=== PATIENT | female | born 1940 | race Caucasian/White ===

== ENCOUNTER 2017-08-04 05:58 | Inpatient (IN) | payer MEDICARE ==
[~2017-08-04] VITALS: Ht 152.4 cm; Wt 75.8 kg
[~2017-08-04 05:58] MED LIST: ATENOLOL50 MG PO; BUSPIRONE HCL5 MG PO; CHOLESTYRAMINE L4 GM; CIPROFLOXACIN500 MG PO; FERROUS SULFAT325 MG PO; FEXOFENADINE H180 MG PO; GLIPIZIDE5 MG PO; JANUVIA100 MG PO; KEFLEX500 MG PO; LACTULOSE20 GM/30 M PO; LANSOPRAZOLE30 M1 PO; LEVAQUIN250 MG PO; LEVOTHYROXINE50 MCG PO; LISINOPRIL2.5 MG PO; LOSARTAN POTAS100 MG PO; LOSARTAN POTASS25 MG PO; METFORMIN HCL500 M2 PO; METFORMIN HCL500 MG PO; OMEPRAZOLE40 MG PO; ONDANSETRON HCL8 MG PO; PREVACID15 MG PO; URSODIOL300 MG PO; XIFAXAN550 MG; XIFAXAN550 MG PO; Z GLUCOTROL PO; Z.0.ALDACTONE50 MG PO; Z.0.AMLODIPINE BESYL PO; Z.0.ATENOLOL50 MG PO; Z.0.CIPRO500 MG PO; Z.0.DIOVAN160 MG PO; Z.0.LANSOPRAZOLE30 M PO; Z.0.LASIX20 MG PO; Z.0.LEVOTHYROXINE25 PO; Z.0.NEXIUM40 MG PO; Z.0.OMEPRAZOLE40 MG PO; Z.0.PLAVIX75 MG PO; Z.2.METFORMIN HCL500 PO
[2017-08-04 06:39] LABS: BASOPHILS # (AUTO) 0.1 (0.0-0.1); BASOPHILS % 1.2 % (0.0-1.0); EOSINOPHILS # (AUTO) 0.2 (0.0-0.4); EOSINOPHILS % 3.7 % (0.0-6.0); HEMATOCRIT 33.6 % (34.2-44.1); HEMOGLOBIN 10.9 g/dL (12.0-16.0); LYMPHOCYTES # (AUTO) 1.1 (1.0-3.2); LYMPHOCYTES % 20.1 % (18.0-39.1); MEAN CORPUSCULAR HEMOGLOBIN 31.4 pg (28-32); MEAN CORPUSCULAR HGB CONC 32.4 g/dL (31-35); MEAN CORPUSCULAR VOLUME 96.8 fL (81-99); MONOCYTES # (AUTO) 0.6 (0.2-0.8); MONOCYTES % 10.9 % (4.4-11.3); NEUTROPHILS # (AUTO) 3.6 (2.1-6.9); NEUTROPHILS % 63.4 % (38.7-80.0); PLATELET COUNT 125 x10e3/uL (140-360); RED BLOOD COUNT 3.47 x10e6/uL (3.6-5.1); RED CELL DISTRIBUTION WIDTH 19.6 % (11.7-14.4)
[2017-08-04 07:00] LABS: ALBUMIN/GLOBULIN RATIO 0.4 (0.8-2.0); CALCIUM 8.3 mg/dL (8.4-10.2); CREATININE, SERUM 0.95 mg/dL (0.57-1.11)
[2017-08-04 07:01] LABS: CREATINE KINASE MB 1.5 ng/mL (0-5.0)
[2017-08-04] MEDS ORDERED: LIDOCAINE 1% 5ML-MPF INJ ONE (07:15)
[2017-08-04 07:22] LABS: INR 1.84; PARTIAL THROMBOPLASTIN TIME 39.4 seconds (23.8-35.5)
--- NOTE | 2017-08-04 07:43 | Diagnostic Imaging Report ---
Exams: Head and cervical spine CTs without IV contrast History: Multiple prior head CTs which date to 04/06/2014, most recent head CT of 04/15/2016. Comparison studies: None Technique: Axial images were obtained from the brain and cervical spine. Coronal and sagittal images reconstructed from the axial data. Intravenous contrast: None Findings: Head CT: Scalp: Possible dressing in place over the left frontal convexity no large hematoma. Bones: No fractures, blastic or lytic lesions. Extra-axial spaces: No masses. No fluid collections. Brain sulci: Appropriate for age. Ventricles: Mildly prominent. No hydrocephalus. Parenchyma: No mass, acute hemorrhage or acute cortical vascular insults. Confluent hypodensity in the supratentorial white matter is nonspecific but most compatible with chronic small vessel ischemic changes. Sellar/suprasellar region: No abnormalities. Craniocervical junction: The foramen magnum is patent. No Chiari one malformation. Included paranasal sinuses: Nonspecific scattered mucosal thickening in the right ethmoids, left frontal ethmoidal recess and in the left maxillary sinus. Cervical spine CT: Fractures: None. Soft tissues: No gross abnormalities. Atlantoaxial articulation: Intact. Alignment: Normal lordosis. No scoliosis. Cervicomedullary junction: No abnormalities. The foramen magnum is patent. Vertebrae: No infection or neoplasm. The C3 and C4 vertebrae are congenitally fused. Degenerative changes: Mildly degenerated cervical disks. Anterior disc osteophyte from C4 to C7 indent the prevertebral soft tissues. Disc osteophyte complexes at C4-C5, C5-C6 and C6-C7 indent the thecal sac but do not result in significant canal stenosis. Mild scattered uncovertebral facet arthrosis without significant foraminal stenosis. Incidental findings: Atherosclerotic calcifications in the carotid siphons. Bilateral lens replacements related to previous cataract surgery. Partially imaged fluid-filled, distended thoracic esophagus. Findings are nonspecific but could be related to gastroesophageal reflux in the context of a hiatal hernia as described on the remote abdomen CT of 03/29/2014. Cannot further evaluate on this exam. Conventional esophagram could further evaluate, as warranted. IMPRESSION: Head CT: 1. No acute intracranial abnormalities. 2. No fractures. 3. Moderate chronic microvascular ischemic changes and mild generalized volume loss are unchanged. Cervical spine CT: 1. No cervical spine fracture or subluxation. 2. Congenital C3-C4 vertebral fusion. 3. Mild degenerative changes as described. 4. Nonspecific esophageal distention, as described. Cannot adequately evaluate ligament, spinal cord and or vascular abnormalities on the basis of this examination. Signed by: Dr. Keyon Crowley M.D. on 08/04/2017 7:35 AM
[2017-08-04] MEDS ORDERED: LIDOCAINE HCL 1% LOCAL INJ 20 ML VIAL ONE (07:44)
--- NOTE | 2017-08-04 07:55 | Diagnostic Imaging Report ---
PROCEDURE: A single AP view of the chest. COMPARISON: Portable chest 09/25/2016. INDICATIONS: S/P FALL, SYNCOPE FINDINGS: Lines/tubes: None. Lungs: Bibasilar atelectasis. No focal consolidation. No parenchymal mass. Pleura: There is no pleural effusion or pneumothorax. Heart and mediastinum: The heart and the mediastinum are unremarkable. Small hiatal hernia. Bones: No acute bony abnormality. Degenerative changes of the thoracic spine. IMPRESSION: No acute radiographic abnormality. Dictated by: Tom Sharp M.D. on 08/04/2017 at 7:56 Electronically approved by: Tom Sharp M.D. on 08/04/2017 at 7:56
[2017-08-04] MEDS ORDERED: LIDOCAINE HCL 1% LOCAL INJ 20 ML VIAL INJ ONE (08:00)
[2017-08-04 08:55] LABS: BILIRUBIN,URINE 1+ (NEGATIVE); CLARITY,URINE SL CLOUDY (CLEAR); COLOR,URINE YELLOW (YELLOW); KETONES,URINE NEGATIVE (NEGATIVE); LEUKOCYTE ESTERASE ,URINE NEGATIVE (NEGATIVE); NITRITE,URINE NEGATIVE (NEGATIVE); PROTEIN,URINE DIPSTICK NEGATIVE (NEGATIVE); URINE UROBILINOGEN 0.2 mg/dL (0.2 - 1)
[2017-08-04 09:21] LABS: EPITHELIAL CELLS,URINE RARE /LPF
[2017-08-04 09:22] LABS: YEAST,URINE RARE
--- OUTSIDE RECORDS SUMMARY | 2017-08-04 09:43 | XMS REPORT ---
Author Author [facility] Address Unknown Phone Unavailable Care Team Providers Care Laboratory Aide Name Role Phone MINNIE KRAMER Unavailable Unavailable Problems This patient has no known problems. Allergies, Adverse Reactions, Alerts This patient has no known allergies or adverse reactions. Medications This patient has no known medications. Results Test Description Test Time Test Comments Text Results Atomic Results Result Comments CT BRAIN WO [place] [address] Patient Name: TARAH GIBBONS MR #: [id number] : 1940 Age/Sex: 77/F Req # : [id number] Adm Physician: Ordered by: BIANKA JIMENEZ MD Report # : [id number] Location: ER Room/Bed: Procedure: [id number] CT/CT BRAIN WO Exam Date: 08/04/17 Exam Time: 0643 REPORT STATUS: Signed Exams: Head and cervical spine CTs without IV contrast History: Multiple prior head CTs which date to 04/06/2014, most recent head CT of 04/15/2016. Comparison studies: None Technique: Axial images were obtained from the brain and cervical spine. Coronal and sagittal images reconstructed from the axial data. Intravenous contrast: None Findings: Head CT: Scalp: Possible dressing in place over the left frontal convexity no large hematoma. Bones: No fractures, blastic or lytic lesions. Extra-axial spaces: No masses. No fluid collections. Brain sulci: Appropriate for age. Ventricles: Mildly prominent. No hydrocephalus. Parenchyma: No mass, acute hemorrhage or acute cortical vascular insults. Confluent hypodensity in the supratentorial white matter is nonspecific but most compatible with chronic small vessel ischemic changes. Sellar/suprasellar region: No abnormalities. Craniocervical junction: The foramen magnum is patent. No Chiari one malformation. Included paranasal sinuses: Nonspecific scattered mucosal thickening in the right ethmoids, left frontal ethmoidal recess and in the left maxillary sinus. Cervical spine CT: Fractures: None. Soft tissues: No gross abnormalities. Atlantoaxial articulation: Intact. Alignment: Normal lordosis. No scoliosis. Cervicomedullary junction: No abnormalities. The foramen magnum is patent. Vertebrae: No infection or neoplasm. The C3 and C4 vertebrae are congenitally fused. Degenerative changes: Mildly degenerated cervical disks. Anterior disc osteophyte from C4 to C7 indent the prevertebral soft tissues. Disc osteophyte complexes at C4-C5, C5-C6 and C6- C7 indent the thecal sac but do not result in significant canal stenosis. Mild scattered uncovertebral facet arthrosis without significant foraminal stenosis. Incidental findings: Atherosclerotic calcifications in the carotid siphons. Bilateral lens replacements related to previous cataract surgery. Partially imaged fluid-filled, distended thoracic esophagus. Findings are nonspecific but could be related to gastroesophageal reflux in the context of a hiatal hernia as described on the remote abdomen CT of 2013. Cannot further evaluate on this exam. Conventional esophagram could further evaluate, as warranted. IMPRESSION: Head CT: 1. No acute intracranial abnormalities. 2. No fractures. 3. Moderate chronic microvascular ischemic changes and mild generalized volume loss are unchanged. Cervical spine CT: 1. No cervical spine fracture or subluxation. 2. Congenital C3-C4 vertebral fusion. 3. Mild degenerative changes as described. 4. Nonspecific esophageal distention, as described. Cannot adequately evaluate ligament, spinal cord and or vascular abnormalities on the basis of this examination. Signed by: Dr. Any Crowley M.D. on 08/04/2017 7:35 AM Dictated By: ANY CROWLEY MD 4 Transcribed By: CAMELIA on 08/04/17734 COPY TO: BIANKA JIMENEZ MD CT CERVICAL SPINE WO [facility] [address] [address] Patient Name: TARAH GIBBONS MR #: [id number] : 1940 Age/Sex: 77/F Req #: [id number] Adm Physician: Ordered by: BIANKA JIMENEZ MD Report #: [id number] Location: ER Room/Bed: Procedure: [id number] CT/CT CERVICAL SPINE WO Exam Date: 08/04/17 Exam Time: 0643 REPORT STATUS: Signed Exams: Head and cervical spine CTs without IV contrast History: Multiple prior head CTs which date to 04/06/2014, most recent head CT of 04/15/2016. Comparison studies: None Technique: Axial images were obtained from the brain and cervical spine. Coronal and sagittal images reconstructed from the axial data. Intravenous contrast: None Findings: Head CT: Scalp: Possible dressing in place over the left frontal convexity no large hematoma. Bones: No fractures, blastic or lytic lesions. Extra-axial spaces: No masses. No fluid collections. Brain sulci: Appropriate for age. Ventricles: Mildly prominent. No hydrocephalus. Parenchyma: No mass, acute hemorrhage or acute cortical vascular insults. Confluent hypodensity in the supratentorial white matter is nonspecific but most compatible with chronic small vessel ischemic changes. Sellar/suprasellar region: No abnormalities. Craniocervical junction: The foramen magnum is patent. No Chiari one malformation. Included paranasal sinuses: Nonspecific scattered mucosal thickening in the right ethmoids, left frontal ethmoidal recess and in the left maxillary sinus. Cervical spine CT: Fractures: None. Soft tissues: No gross abnormalities. Atlantoaxial articulation: Intact. Alignment: Normal lordosis. No scoliosis. Cervicomedullary junction: No abnormalities. The foramen magnum is patent. Vertebrae: No infection or neoplasm. The C3 and C4 vertebrae are congenitally fused. Degenerative changes: Mildly degenerated cervical disks. Anterior disc osteophyte from C4 to C7 indent the prevertebral soft tissues. Disc osteophyte complexes at C4-C5 , C5-C6 and C6-C7 indent the thecal sac but do not result in significant canal stenosis. Mild scattered uncovertebral facet arthrosis without significant foraminal stenosis. Incidental findings: Atherosclerotic calcifications in the carotid siphons. Bilateral lens replacements related to previous cataract surgery. Partially imaged fluid-filled, distended thoracic esophagus. Findings are nonspecific but could be related to gastroesophageal reflux in the context of a hiatal hernia as described on the remote abdomen CT of 03/29/2014. Cannot further evaluate on this exam. Conventional esophagram could further evaluate, as warranted. IMPRESSION : Head CT: 1. No acute intracranial abnormalities. 2. No fractures. 3. Moderate chronic microvascular ischemic changes and mild generalized volume loss are unchanged. Cervical spine CT: 1. No cervical spine fracture or subluxation. 2. Congenital C3-C4 vertebral fusion. 3. Mild degenerative changes as described. 4. Nonspecific esophageal distention, as described. Cannot adequately evaluate ligament, spinal cord and or vascular abnormalities on the basis of this examination. Signed by: Dr. Any Crowley M.D. on 08/04/2017 7:35 AM Dictated By: ANY CROWLEY MD 4 Transcribed By : CAMELIA on 08/04/17734 COPY TO: BIANKA JIMENEZ MD [facility] ([facility]) [place] [address] Patient Name: TARAH GIBBONS MR #: [id number] : 1940 Age/Sex: 77/F Req #: [id number] Adm Physician: Ordered by: BIANKA JIMENEZ MD Report #: [id number] Location: ER Room/Bed: ___ Procedure: [id number] DX/CHEST SINGLE (PORTABLE) Exam Date: 08/04/17 Exam Time: 0643 REPORT STATUS: Signed PROCEDURE : A single AP view of the chest. COMPARISON: Portable chest 09/25/2016. INDICATIONS: S/P FALL, SYNCOPE FINDINGS: Lines/tubes: None. Lungs: Bibasilar atelectasis. No focal consolidation. No parenchymal mass. Pleura: There is no pleural effusion or pneumothorax. Heart and mediastinum: The heart and the mediastinum are unremarkable. Small hiatal hernia. Bones: No acute bony abnormality. Degenerative changes of the thoracic spine. IMPRESSION: No acute radiographic abnormality. Dictated by: Pooja Gómez M.D. on 2017 at 7:56 Electronically approved by: Pooja Gómez M.D. on 08/04/2017 at 7:56 Dictated By: POOJA GÓMEZ MD 0756 Transcribed By: YENIFER on 08/04/17 0756 COPY TO: BIANKA JIMENEZ MD
[2017-08-04] MEDS: SODIUM CHLORIDE 0.9% 1000ML 1,000 ML IV SCH (10:40)
[2017-08-04] MEDS: ONDANSETRON HCL INJ 2 MG/ML VIAL IV PRN (20:25)
[2017-08-04] MEDS: MORPHINE SULFATE 2 MG/ML SYR IV PRN (20:30)
[2017-08-04 20:57] VITALS: BP 121/60
[2017-08-04 22:00] VITALS: BP 121/60
[2017-08-04 22:35] VITALS: BP 121/60
[2017-08-05] VITALS (7 sets, daily range): BP systolic 127–152; BP diastolic 60–65
[2017-08-05] MEDS: SODIUM CHLORIDE 0.9% 1000ML 1,000 ML IV SCH ×3 (05:02→23:23)
[2017-08-05 07:39] LABS: CREATINE KINASE MB 1.8 ng/mL (0-5.0)
--- NOTE | 2017-08-05 08:59 | History and Physical ---
PRIMARY CARE PHYSICIAN: None CHIEF COMPLAINT: Fall. HISTORY OF PRESENT ILLNESS: This is a 77-year-old woman with a history of cirrhosis and hepatic encephalopathy, who fell at home. Details of the fall are unclear. The patient unable to provide any history. I am unable to reach the by telephone, . The patient currently is comfortable. She had a gash/bruise over her left eyebrow. Otherwise, the patient denies any pain at this time. Denies any shortness of breath. PAST MEDICAL HISTORY: Liver cirrhosis, hepatic encephalopathy, hypertension, abdominal surgery, medication noncompliance with lactulose, hypertensive urgency, diabetes mellitus, chronic kidney disease, stage 3, esophageal varices, urinary tract infection, ileus. PAST SURGICAL HISTORY: Unknown. C3-C4 vertebral fusion. ALLERGIES: PER ELECTRONIC MEDICAL RECORD. FAMILY HISTORY/SOCIAL HISTORY: The patient lives with her . Family history of hypertension. No alcohol, illicits or cigarettes. MEDICATIONS: Per electronic medical records. REVIEW OF SYSTEMS: Unreliable. PHYSICAL EXAMINATION VITAL SIGNS: On admission, temperature 98.1, pulse 59, blood pressure 155/68, respiratory rate 18, and oxygen 86% on 3 L nasal cannula. Currently, the patient is 91% on 2 L nasal cannula. GENERAL: A tired-appearing woman resting in bed. HEENT: She has a bruise over the left eyebrow. CARDIOVASCULAR: Normal S1 and S2. LUNGS: She has reduced breath sounds throughout. ABDOMEN: Soft. She has a large abdomen. She has a midline scar. She has a right-sided large incisional hernia, which is nontender and somewhat reducible. EXTREMITIES: She has 1+ leg edema bilaterally. SKIN: Dry. PSYCHIATRIC: Flat affect. NEUROLOGIC: Awake but confused. LABS: Reviewed. MEDICATIONS: Reviewed. ASSESSMENT AND PLAN: This is a 77-year-old woman with: 1. Fall: Will get physical therapy consultation. Computerized tomography scan of the brain is negative for any acute findings. Computerized tomography scan of the cervical spine does not show any significant disease. It does show C3-C4 vertebral fusion. 2. Hepatic encephalopathy with hypoammoniemia: Ammonia level 186. Will use lactulose now. 3. Metabolic acidosis: Bicarb 18. Will assess. Will give bicarb to avoid excess fluid at this time in a patient with edema. 4. Peripheral edema and anasarca: She has ascites as well. She does have a history of chronic kidney disease. Will attempt to diurese the patient. 5. Chronic kidney disease, likely stage 2-3: Will monitor while being diuresed. 6. Coagulopathy: INR is 1.8. Monitor for occult bleeding. 7. Thrombocytopenia: Secondary to liver disease. 8. Prophylaxis: Will use sequential compression devices and Pepcid. 9. Disposition: Monitor closely. Physical therapy consultation. Attempted to reach at [phone], but unable to leave a message and later will try again. Job#: [id number] [place]INT[place]
[2017-08-05] MEDS: ATENOLOL 50 MG TAB PO SCH ×2 (09:00→17:46)
--- NOTE | 2017-08-05 09:01 | History and Physical ---
ADDENDUM The patient also has diabetes mellitus. Will hold glipizide and continue metformin. Liver disease. Will continue with rifaximin. Hypothyroidism. Will resume Synthroid and check TSH. Job#: [id number] RI
[2017-08-05 09:08] LABS: CHOL/HDL RATIO 2.8 (3.0-3.6)
[2017-08-05 09:28] LABS: THYROID STIMULATING HORMONE 3.297 uIU/mL (0.350-4.940)
[2017-08-05] MEDS: SITAGLIPTIN 100 MG TAB PO SCH (09:58)
[2017-08-05] MEDS: FUROSEMIDE INJ 10 MG/ML 2 ML VIAL IV SCH (09:58)
[2017-08-05] MEDS: URSODIOL 300 MG CAP PO SCH ×2 (09:59→17:46)
[2017-08-05] MEDS: METFORMIN HCL 500 MG TAB CR PO SCH ×2 (09:59→17:46)
[2017-08-05] MEDS: RIFAXIMIN 550 MG TABLET PO SCH ×2 (09:59→20:11)
[2017-08-05] MEDS: PANTOPRAZOLE SOD 40 MG TABEC PO SCH (09:59)
[2017-08-05] MEDS: LEVOTHYROXINE SODIUM 25 MCG TABLET PO SCH (09:59)
[2017-08-05] MEDS: LACTULOSE SYRUP 20 GM/30 ML UDC PO SCH (23:23)
[2017-08-06] VITALS (8 sets, daily range): BP systolic 115–170; BP diastolic 61–81
[2017-08-06] MEDS: LACTULOSE SYRUP 20 GM/30 ML UDC PO SCH ×3 (05:16→18:02)
[2017-08-06] MEDS: LEVOTHYROXINE SODIUM 25 MCG TABLET PO SCH (05:16)
[2017-08-06] MEDS ORDERED: DEXTROSE 50% SYRINGE 50 ML IV PRN (06:30)
[2017-08-06] MEDS: INSULIN REGULAR, HUMAN 100 UNIT/1 ML 3ML VIAL SQ SCH ×4 (07:30→21:00)
--- NOTE | 2017-08-06 08:04 | Progress Note ---
DATE: August 06, 2017 TIME: 7:44 a.m. OVERNIGHT: No events. REVIEW OF SYSTEMS: Unreliable. PHYSICAL EXAMINATION VITAL SIGNS: Reviewed. GENERAL: A tired-appearing woman resting in bed. HEENT: Atraumatic. CARDIOVASCULAR: Normal S1 and S2. LUNGS: Moderate breath sounds. ABDOMEN: Large. She has a midline scar. She has right-sided large incisional hernia mildly tender abdomen. EXTREMITIES: One plus leg edema. SKIN: Dry. PSYCHIATRIC: Flat affect. NEUROLOGICAL: Awake and confused. LABS: Reviewed. MEDICATIONS: Reviewed. ASSESSMENT: A 77-year-old woman with: 1. Fall. 2. Hepatic encephalopathy with hyperammonemia. 3. Metabolic acidosis. 4. Peripheral edema and anasarca. 5. 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 6. Coagulopathy. 7. Thrombocytopenia. PLAN 1. Continue Xifaxan and lactulose. 2. IR for paracentesis. 3. Physical therapy and SNF evaluation. 4. Monitor renal function. Follow up labs. 5. Hemoglobin A1c 5.1, LDL 63. 6. Continue Synthroid. 7. The patient remains on metformin. She does have a history of diabetes, but A1c is quite low. 8. Obtain labs this morning. SNF evaluation. Job#: [id number] [place]
[2017-08-06] MEDS: PANTOPRAZOLE SOD 40 MG TABEC PO SCH (08:50)
[2017-08-06] MEDS: ATENOLOL 50 MG TAB PO SCH ×2 (08:50→17:13)
[2017-08-06] MEDS: METFORMIN HCL 500 MG TAB CR PO SCH ×2 (08:50→17:13)
[2017-08-06] MEDS: URSODIOL 300 MG CAP PO SCH ×2 (08:50→17:13)
[2017-08-06] MEDS: FUROSEMIDE INJ 10 MG/ML 2 ML VIAL IV SCH (08:50)
[2017-08-06] MEDS: RIFAXIMIN 550 MG TABLET PO SCH ×2 (08:50→21:16)
[2017-08-06] MEDS: SITAGLIPTIN 100 MG TAB PO SCH (08:50)
[2017-08-06] MEDS ORDERED: METOPROLOL TARTRATE INJ 1 MG/ML VIAL IV ONE (10:30)
[2017-08-06] MEDS ORDERED: DIGOXIN INJ 0.25 MG/ML 2 ML AMP IV ONE ×2 (12:30→18:00)
[2017-08-06] MEDS ORDERED: ATENOLOL 50 MG TAB PO ONE (12:30)
[2017-08-06] MEDS ORDERED: METOPROLOL TARTRATE INJ 1 MG/ML VIAL IV PRN (14:30)
[2017-08-06] MEDS: SODIUM CHLORIDE 0.9% 1000ML 1,000 ML IV SCH (14:46)
--- NOTE | 2017-08-06 15:32 | Diagnostic Imaging Report ---
PROCEDURE:US ABDOMEN LIMITED COMPARISON:None. INDICATIONS: Possible Paracentesis TECHNIQUE: Transverse and longitudinal images of the abdomen were obtained of the right and left upper and lower quadrants and midline abdomen. FINDINGS: Small amount of ascites is noted. IMPRESSION: Small volume ascites, likely too small to be of therapeutic/symptomatic benefit. Dictated by: Kade Glez M.D. on 08/06/2017 at 15:32 Electronically approved by: Kade Glez M.D. on 08/06/2017 at 15:32
--- NOTE | 2017-08-06 16:50 | Consultation ---
DATE OF CONSULTATION: August 06, 2017 REASON FOR CONSULTATION: Atrial fibrillation with rapid ventricular response. CONSULTING PHYSICIAN: Dr. Tom Sen. HISTORY OF PRESENT ILLNESS: This is a 77-year-old female with a history of liver cirrhosis who presented status post fall. According to the patient, she was getting out of the bathroom. She lost her balance and she fell hitting her left eye on the floor and sustaining a laceration. She was brought into the emergency room for evaluation. She had a CT done that was negative. Today, she went into atrial fibrillation with rapid ventricular response and cardiology was consulted. She has a history of atrial fibrillation in the past and was not anticoagulated due to the history of liver cirrhosis. She was given digoxin and beta andie and the heart rate is controlled now. She denied any chest pain, any dizziness, any shortness of breath, any diaphoresis or any nausea. Troponin was negative and EKG showed atrial fibrillation, irregularly irregular. PAST MEDICAL HISTORY: Liver cirrhosis, diabetes, hypertension, hepatitis B, esophageal varices, chronic kidney disease, ileus, UTI, hepatic encephalopathy, hypothyroidism, peripheral edema. PAST SURGICAL HISTORY: C3-C4 vertebral fusion, cholecystectomy and colon surgery. FAMILY HISTORY: Positive for hypertension and breast cancer. SOCIAL HISTORY: No smoking, no drinking. She lives at home with her . MEDICATIONS: See medication list. ALLERGIES: CODEINE, PENICILLIN AND IODINE. REVIEW OF SYSTEMS: Negative except as mentioned above. PHYSICAL EXAMINATION VITAL SIGNS: Temperature 97, heart rate 100, blood pressure 116/81, respirations 18, oxygen saturation 97% on room air. GENERAL: She is awake, alert and oriented x3. HEENT: Mucous membranes moist. NECK: Supple. LUNGS: Bilateral with decreased breath sounds. CARDIOVASCULAR: Irregularly irregular. ABDOMEN: Soft, but distended. NEUROLOGIC: She is able to verbalize need and move all extremities. Bilateral lower extremities with 2+ to 3+ edema. LABORATORY DATA: Sodium 139, potassium 4.0, chloride 114, CO2 of 18, BUN 12, creatinine 0.95, glucose 133. White blood cells 5.68. Hemoglobin 10.9, hematocrit 33.6, platelets 125,000. PT 20.0, PTT 39.4, INR 1.84. IMPRESSION 1. Atrial fibrillation with rapid ventricular response. 2. Diabetes. 3. Hypertension. 4. Status post fall with laceration. 5. History of liver cirrhosis. ASSESSMENT AND PLAN: She received digoxin and beta andie and heart rate is in the 100's now. Will continue the same. She had an echocardiogram done that showed left LVH and normal left ventricular size with EF of 61%. No p.o. anticoagulation due to history of liver cirrhosis and thrombocytopenia. Will continue the same medications. Further cardiac workup pending clinical course. Thank you for this consultation. Dictated by Mega Doherty NP Job#: [id number] GH
[2017-08-06] MEDS ORDERED: ATENOLOL 50 MG TAB PO SCH (17:00)
[2017-08-06] MEDS: MORPHINE SULFATE 2 MG/ML SYR IV PRN (23:06)
[2017-08-06] MEDS: ONDANSETRON HCL INJ 2 MG/ML VIAL IV PRN (23:06)
[2017-08-07] VITALS (9 sets, daily range): BP systolic 129–154; BP diastolic 60–75
[2017-08-07] MEDS: LEVOTHYROXINE SODIUM 25 MCG TABLET PO SCH (05:11)
[2017-08-07] MEDS: LACTULOSE SYRUP 20 GM/30 ML UDC PO SCH ×4 (05:11→17:02)
[2017-08-07] MEDS: ONDANSETRON HCL INJ 2 MG/ML VIAL IV PRN (05:24)
[2017-08-07] MEDS: MORPHINE SULFATE 2 MG/ML SYR IV PRN (05:24)
[2017-08-07] MEDS: SODIUM CHLORIDE 0.9% 1000ML 1,000 ML IV SCH ×2 (05:34→20:06)
[2017-08-07 06:06] LABS: WBC,FECAL (FECAL LACTOFERRIN) POSITIVE (NEGATIVE)
[2017-08-07] MEDS: INSULIN REGULAR, HUMAN 100 UNIT/1 ML 3ML VIAL SQ SCH ×4 (07:30→20:51)
[2017-08-07] MEDS: METFORMIN HCL 500 MG TAB CR PO SCH ×2 (08:00→16:46)
[2017-08-07 08:02] LABS: BASOPHILS % 0.4 % (0.0-1.0); EOSINOPHILS % 0.1 % (0.0-6.0); HEMOGLOBIN 10.7 g/dL (12.0-16.0); LYMPHOCYTES # (AUTO) 0.7 (1.0-3.2); LYMPHOCYTES % 10.2 % (18.0-39.1); MEAN CORPUSCULAR HGB CONC 32.4 g/dL (31-35); MEAN CORPUSCULAR VOLUME 98.8 fL (81-99); MONOCYTES # (AUTO) 0.7 (0.2-0.8); MONOCYTES % 9.5 % (4.4-11.3); NEUTROPHILS # (AUTO) 5.5 (2.1-6.9); NEUTROPHILS % 79.5 % (38.7-80.0); PLATELET COUNT 132 x10e3/uL (140-360); RED BLOOD COUNT 3.34 x10e6/uL (3.6-5.1)
[2017-08-07 08:20] LABS: ANION GAP 11.5 mmol/L (8-16); CALCIUM 8.3 mg/dL (8.4-10.2); CREATININE, SERUM 1.02 mg/dL (0.57-1.11); MAGNESIUM 1.2 MG/DL (1.3-2.1); PHOSPHORUS 3.1 MG/DL (2.3-4.7); POTASSIUM 3.5 mmol/L (3.5-5.1)
[2017-08-07] MEDS: PANTOPRAZOLE SOD 40 MG TABEC PO SCH (09:00)
[2017-08-07] MEDS: ATENOLOL 50 MG TAB PO SCH ×2 (09:00→16:46)
[2017-08-07] MEDS: RIFAXIMIN 550 MG TABLET PO SCH ×2 (09:00→20:13)
[2017-08-07] MEDS: URSODIOL 300 MG CAP PO SCH ×2 (09:00→16:46)
[2017-08-07] MEDS: SITAGLIPTIN 100 MG TAB PO SCH (09:00)
[2017-08-07] MEDS: DIGOXIN 0.125 MG TAB PO SCH (09:00)
[2017-08-07] MEDS: FUROSEMIDE INJ 10 MG/ML 2 ML VIAL IV SCH (09:09)
[2017-08-07] MEDS ORDERED: MAGNESIUM SULFATE 2GM/50ML 50 ML IV ONE (09:30)
--- NOTE | 2017-08-07 11:52 | Progress Note ---
DATE: August 07, 2017 at 7 a.m. SUBJECTIVE: Overnight no events. REVIEW OF SYSTEMS: Unreliable. OBJECTIVE VITAL SIGNS: Reviewed. GENERAL APPEARANCE: A tired-appearing woman resting in the bed. HEENT: Atraumatic. CARDIOVASCULAR: Normal S1 and S2. LUNGS: Moderate breath sounds, ABDOMEN: Large abdomen. She has a midline scar. She has right-sided large incisional hernia. No real tenderness in the abdomen. EXTREMITIES: 1+ edema. NEUROLOGIC: Awake but confused. SKIN: Dry. PSYCHIATRIC: Flat affect. LABS: Reviewed. MEDICATIONS: Reviewed. ASSESSMENT: A 77-year-old woman with: 1. Fall. 2. Hepatic encephalopathy with hyperammonemia. 3. Metabolic acidosis. 4. Peripheral edema and anasarca. 5. 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 6. Coagulopathy. 7. Thrombocytopenia. PLAN 1. Continue Xifaxan and lactulose. 2. Unable to obtain paracentesis due to not enough fluid. 3. Physical deconditioning, will need physical therapy. Skilled facility evaluation pending. 4. Hemoglobin A1c 5.1, LDL 63. 5. Continue Synthroid. 6. Continue diabetes medication. 7. Followup labs. 8. Continue Lactulose treatment. 9. Discharge planning. Job#: [id number]
[2017-08-07 15:02] LABS: C DIFFICILE TOXIN A&B AMP PROB NEGATIVE (NEGATIVE)
[2017-08-08] VITALS: BP 123/56
[2017-08-08] MEDS: LACTULOSE SYRUP 20 GM/30 ML UDC PO SCH ×5 (00:56→23:47)
[2017-08-08 04:00] VITALS: BP 145/64
[2017-08-08] MEDS: LEVOTHYROXINE SODIUM 25 MCG TABLET PO SCH (06:10)
[2017-08-08] MEDS: INSULIN REGULAR, HUMAN 100 UNIT/1 ML 3ML VIAL SQ SCH ×4 (07:30→20:36)
[2017-08-08 08:27] VITALS: BP 163/72
[2017-08-08] MEDS: RIFAXIMIN 550 MG TABLET PO SCH ×2 (09:26→20:36)
[2017-08-08] MEDS: URSODIOL 300 MG CAP PO SCH ×2 (09:26→16:48)
[2017-08-08] MEDS: PANTOPRAZOLE SOD 40 MG TABEC PO SCH (09:26)
[2017-08-08] MEDS: METFORMIN HCL 500 MG TAB CR PO SCH ×2 (09:26→16:48)
[2017-08-08] MEDS: SITAGLIPTIN 100 MG TAB PO SCH (09:26)
[2017-08-08] MEDS: DIGOXIN 0.125 MG TAB PO SCH (09:26)
[2017-08-08] MEDS: ATENOLOL 50 MG TAB PO SCH ×2 (09:26→16:48)
[2017-08-08] MEDS: FUROSEMIDE INJ 10 MG/ML 2 ML VIAL IV SCH (09:26)
[2017-08-08 12:00] VITALS: BP 168/71
[2017-08-08] MEDS: SODIUM CHLORIDE 0.9% 1000ML 1,000 ML IV SCH ×2 (14:30→20:36)
[2017-08-08 16:00] VITALS: BP 161/67
--- NOTE | 2017-08-08 16:41 | Progress Note ---
DATE: August 08, 2017 at 1515 INTERNAL MEDICINE PROGRESS NOTE SUBJECTIVE: Overnight no acute events. REVIEW OF SYSTEMS: Unremarkable/unreliable. OBJECTIVE VITAL SIGNS: T 96.5, axillary, P 65, R 22, BP at noon 168/71 with pulse oximetry of 94% on nasal cannula at 2 liters. GENERAL APPEARANCE: This is a chronically ill appearing, tired woman resting in bed. HEENT: Normocephalic. Reasonably approximated laceration noted over left periorbital margin. Nares patent. Dentures noted. Trachea midline. CARDIOVASCULAR: S1 and S2 appreciated, distant, no murmurs, clicks or rubs. LUNGS: Moderate breath sounds in all [place] without extra respiratory sounds noted. ABDOMEN: Protuberant with midline scar. The patient with right-sided large incisional hernia. Did not attempt to reduce. No tenderness on palpation x4 quadrants. EXTREMITIES: 2+ edema bilateral lower extremities. NEUROLOGIC: Awake, but intermittently confused. Pleasant disposition, cooperative with exam for a few seconds at a time. SKIN: Dry. PSYCHIATRIC: Very flat affect. LABORATORY DATA: Hemoglobin and hematocrit on the of 10.7 and 33 respectively with normal white count, platelets on that day 132. Chemistry on the with findings of sodium of 138, potassium of 3.5, chloride and carbon dioxide 112 and 18, with GFR of 52. Ammonia on the noted to be 94. MEDICATIONS: Atenolol 50 mg p.o. b.i.d., digoxin 0.125 mg p.o. daily, Lasix 20 mg IV daily, Actigall/ursodiol 300 mg p.o. b.i.d., Januvia 50 mg p.o. daily, Xifaxan 550 mg p.o. q.12 h., Protonix 40 mg p.o. daily, metformin 500 mg p.o. b.i.d. with meals, Lactulose q.6 h. by mouth, Synthroid 25 mcg daily at 0600, NS 75 mL per hour IV, magnesium sulfate replaced yesterday. P.r.n. /morphine sulfate 4 mg q.4 h., Zofran 4 mg p.r.n. q.4 h. IV nausea and vomiting, digoxin 0.25 once on the , sliding scale insulin previously provided, p.r.n. metoprolol for heart rate q. 3 h. ASSESSMENT: This is a 77-year-old woman with: 1. Status post fall. 2. Hepatic encephalopathy with hyperammonemia. 3. Metabolic acidosis. 4. Peripheral edema and anasarca. 5. Chronic kidney disease stage 2 to 3. 6. Coagulopathy. 7. Thrombocytopenia. PLAN: 1. Continue the Xifaxan and lactulose. 2. Paracentesis not indicated due to not enough fluid. 3. Physical deconditioning; will need physical therapy, SNF evaluation and transfer pending. 4. Diabetes mellitus type 2, controlled. Has A1c of 5.1, LDL 63. 5. Continue Synthroid. 6. Continue diabetes mellitus medication. 7. Obtain and monitor labs in the morning. 8. Continue lactulose treatment. 9. Prophylaxis: No AC due to liver pathology. Continue Protonix. DISPOSITION: Extensive discussion this afternoon with the spouse and son at bedside. Spouse has chosen [facility] facility to provide SNF services. Per spouse, case management arranging transfer. We will obtain a.m. labs and discuss p.r.n. blood pressure medications with nursing staff. DICTATED BY: Mike Salas NP Job#: [id number]
[2017-08-08 20:00] VITALS: BP 139/61
[2017-08-09] VITALS (7 sets, daily range): BP systolic 121–158; BP diastolic 53–87
[2017-08-09] MEDS: LACTULOSE SYRUP 20 GM/30 ML UDC PO SCH ×3 (06:00→18:00)
[2017-08-09] MEDS: LEVOTHYROXINE SODIUM 25 MCG TABLET PO SCH (06:37)
[2017-08-09 07:20] LABS: BASOPHILS % 0.7 % (0.0-1.0); EOSINOPHILS # (AUTO) 0.1 (0.0-0.4); EOSINOPHILS % 3.1 % (0.0-6.0); HEMATOCRIT 30.4 % (34.2-44.1); HEMOGLOBIN 10.2 g/dL (12.0-16.0); LYMPHOCYTES # (AUTO) 0.9 (1.0-3.2); LYMPHOCYTES % 20.7 % (18.0-39.1); MEAN CORPUSCULAR HEMOGLOBIN 32.1 pg (28-32); MEAN CORPUSCULAR HGB CONC 33.6 g/dL (31-35); MEAN CORPUSCULAR VOLUME 95.6 fL (81-99); MONOCYTES # (AUTO) 0.6 (0.2-0.8); MONOCYTES % 13.2 % (4.4-11.3); NEUTROPHILS # (AUTO) 2.8 (2.1-6.9); NEUTROPHILS % 61.6 % (38.7-80.0); PLATELET COUNT 103 x10e3/uL (140-360); RED BLOOD COUNT 3.18 x10e6/uL (3.6-5.1); RED CELL DISTRIBUTION WIDTH 18.7 % (11.7-14.4)
[2017-08-09] MEDS: INSULIN REGULAR, HUMAN 100 UNIT/1 ML 3ML VIAL SQ SCH ×4 (07:30→21:00)
[2017-08-09 07:48] LABS: ANION GAP 6.7 mmol/L (8-16); CALCIUM 8.2 mg/dL (8.4-10.2); CREATININE, SERUM 1.04 mg/dL (0.57-1.11)
[2017-08-09 07:51] LABS: POTASSIUM 2.7 mmol/L (3.5-5.1)
[2017-08-09] MEDS: METFORMIN HCL 500 MG TAB CR PO SCH ×2 (08:00→17:48)
[2017-08-09] MEDS ORDERED: POTASSIUM CHLORIDE 20 MEQ TAB CR PO STA (08:32)
[2017-08-09] MEDS ORDERED: POTASSIUM CHLORIDE 20 MEQ TAB CR PO SCH ×2 (08:45→09:30)
[2017-08-09] MEDS ORDERED: POTASSIUM CHLORIDE 20MEQ/100ML 200 ML IV ONE (08:45)
[2017-08-09] MEDS: PANTOPRAZOLE SOD 40 MG TABEC PO SCH (09:22)
[2017-08-09] MEDS: RIFAXIMIN 550 MG TABLET PO SCH ×2 (09:22→21:36)
[2017-08-09] MEDS: FUROSEMIDE INJ 10 MG/ML 2 ML VIAL IV SCH (09:22)
[2017-08-09] MEDS: URSODIOL 300 MG CAP PO SCH ×2 (09:22→17:48)
[2017-08-09] MEDS: SITAGLIPTIN 100 MG TAB PO SCH (09:22)
[2017-08-09] MEDS: ATENOLOL 50 MG TAB PO SCH ×2 (09:22→17:48)
[2017-08-09] MEDS: SODIUM CHLORIDE 0.9% 1000ML 1,000 ML IV SCH (18:18)
[2017-08-10] VITALS (8 sets, daily range): BP systolic 140–170; BP diastolic 53–74
[2017-08-10] MEDS: SODIUM CHLORIDE 0.9% 1000ML 1,000 ML IV SCH ×2 (01:52→12:00)
[2017-08-10] MEDS: LACTULOSE SYRUP 20 GM/30 ML UDC PO SCH ×4 (06:01→18:00)
[2017-08-10] MEDS: LEVOTHYROXINE SODIUM 25 MCG TABLET PO SCH (06:01)
--- NOTE | 2017-08-10 07:29 | Progress Note ---
DATE: August 09, 2017 TIME: 7 a.m. OVERNIGHT: No events. REVIEW OF SYSTEMS: Unreliable. PHYSICAL EXAMINATION VITAL SIGNS: Reviewed. GENERAL: A tired-appearing woman resting in bed. HEENT: Atraumatic. CARDIOVASCULAR: Normal S1 and S2. LUNGS: Moderate breath sounds. ABDOMEN: Soft. Large abdomen. She has a midline scar. She has an incisional hernia. EXTREMITIES: Trace edema. SKIN: Dry. PSYCHIATRIC: Flat affect. LABS: Reviewed. MEDICATIONS: Reviewed. ASSESSMENT: A 77-year-old woman with: 1. Fall. 2. Hepatic encephalopathy with hyperammonemia. 3. Metabolic acidosis. 4. Peripheral edema in the setting of anasarca. 5. 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 6. Coagulopathy. 7. Thrombocytopenia. PLAN 1. Continue Xifaxan and lactulose. 2. Unable to obtain paracentesis. 3. Continue physical therapy. 4. Hemoglobin A1c 5.1. 5. Continue Synthroid. 6. Skilled facility pending. Job#: [id number] [place]
[2017-08-10] MEDS: INSULIN REGULAR, HUMAN 100 UNIT/1 ML 3ML VIAL SQ SCH ×4 (07:30→20:49)
--- NOTE | 2017-08-10 07:45 | Progress Note ---
DATE: August 10, 2017 TIME: 7:07 a.m. OVERNIGHT: Some nausea. REVIEW OF SYSTEMS: Unreliable. VITAL SIGNS: Reviewed. PHYSICAL EXAMINATION GENERAL: A tired-appearing woman resting in bed. HEENT: Atraumatic. CARDIOVASCULAR: Normal S1 and S2. LUNGS: Moderate breath sounds. ABDOMEN: Soft. Large abdomen. She has a midline scar. She has an incisional hernia. There is no tenderness of the abdominal wall. EXTREMITIES: No edema. SKIN: Dry. PSYCHIATRIC: Flat affect. NEUROLOGIC: Awake, but confused. LABS: Reviewed. MEDICATIONS: Reviewed. ASSESSMENT: A 77-year-old woman with: 1. Fall. 2. Hepatic encephalopathy with hyperammonemia. 3. Metabolic acidosis. 4. Peripheral edema and anasarca. 5. 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 6. Coagulopathy. 7. Thrombocytopenia. PLAN 1. Continue Xifaxan and lactulose. 2. Unable to obtain paracentesis due to insufficient fluid. 3. Hemoglobin has remained stable. No leukocytosis. 4. She had some hypokalemia. Will recheck now. 5. Check ammonia level. The last ammonia was 84 yesterday. Patient refused 1 dose of lactulose overnight. 6. Continue physical therapy and await skilled facility placement. Job#: [id number]
[2017-08-10] MEDS: PROMETHAZINE 12.5MG/ NACL 0.9% 12.5 MG/50 ML BAG IV PRN (07:49)
[2017-08-10] MEDS: PANTOPRAZOLE SOD 40 MG TABEC PO SCH (09:00)
[2017-08-10] MEDS: RIFAXIMIN 550 MG TABLET PO SCH ×2 (09:00→21:02)
[2017-08-10] MEDS: URSODIOL 300 MG CAP PO SCH ×2 (09:00→17:51)
[2017-08-10] MEDS: ATENOLOL 50 MG TAB PO SCH ×2 (09:00→17:52)
[2017-08-10] MEDS: METFORMIN HCL 500 MG TAB CR PO SCH ×2 (09:11→17:51)
[2017-08-10] MEDS: FUROSEMIDE INJ 10 MG/ML 2 ML VIAL IV SCH (09:11)
[2017-08-10] MEDS: SITAGLIPTIN 100 MG TAB PO SCH (09:11)
[2017-08-11] MEDS: SODIUM CHLORIDE 0.9% 1000ML 1,000 ML IV SCH ×2 (01:26→14:46)
[2017-08-11 04:40] VITALS: BP 160/69
[2017-08-11] MEDS: LEVOTHYROXINE SODIUM 25 MCG TABLET PO SCH (06:05)
[2017-08-11] MEDS: LACTULOSE SYRUP 20 GM/30 ML UDC PO SCH ×4 (06:05→16:42)
[2017-08-11] MEDS: INSULIN REGULAR, HUMAN 100 UNIT/1 ML 3ML VIAL SQ SCH ×4 (07:30→20:52)
[2017-08-11 08:00] VITALS: BP_SYST 113; BP_SYST 148; BP_DIAS 59; BP_DIAS 67
[2017-08-11] MEDS: FUROSEMIDE INJ 10 MG/ML 2 ML VIAL IV SCH (08:47)
[2017-08-11] MEDS: METFORMIN HCL 500 MG TAB CR PO SCH ×2 (08:47→16:41)
[2017-08-11] MEDS: ATENOLOL 50 MG TAB PO SCH ×2 (08:47→16:41)
[2017-08-11] MEDS: URSODIOL 300 MG CAP PO SCH ×2 (08:47→16:41)
[2017-08-11] MEDS: PANTOPRAZOLE SOD 40 MG TABEC PO SCH (08:47)
[2017-08-11] MEDS: RIFAXIMIN 550 MG TABLET PO SCH ×2 (08:47→20:51)
[2017-08-11] MEDS: SITAGLIPTIN 100 MG TAB PO SCH (08:47)
[2017-08-11 12:00] VITALS: BP 125/56
[2017-08-11 16:00] VITALS: BP 139/64
[2017-08-11] MEDS: HYDRALAZINE HCL 10 MG TAB PO SCH ×2 (16:41→22:00)
[2017-08-11 20:00] VITALS: BP 145/67
[2017-08-12] VITALS (7 sets, daily range): BP systolic 123–160; BP diastolic 59–70
[2017-08-12] MEDS: LACTULOSE SYRUP 20 GM/30 ML UDC PO SCH ×4 (06:00→18:03)
[2017-08-12] MEDS: HYDRALAZINE HCL 10 MG TAB PO SCH (06:43)
[2017-08-12] MEDS: LEVOTHYROXINE SODIUM 25 MCG TABLET PO SCH (06:43)
[2017-08-12] MEDS: SODIUM CHLORIDE 0.9% 1000ML 1,000 ML IV SCH (06:44)
--- NOTE | 2017-08-12 07:28 | Progress Note ---
DATE: August 11, 2017 TIME: 7:40 a.m. OVERNIGHT: No events. The patient refusing lactulose. REVIEW OF SYSTEMS: Unreliable. PHYSICAL EXAMINATION VITAL SIGNS: Reviewed. GENERAL: A tired-appearing woman resting in bed. HEENT: Atraumatic. CARDIOVASCULAR: Normal S1 and S2. LUNGS: Moderate breath sounds. ABDOMEN: Soft. Large abdomen. Midline scar with incisional hernia, nontender. EXTREMITIES: Trace edema. SKIN: Dry. PSYCHIATRIC: Flat affect. NEUROLOGICAL: Awake and confused. LABS: Reviewed. MEDICATIONS: Reviewed. ASSESSMENT: This is a 77-year-old woman with: 1. Fall. 2. Hepatic encephalopathy with hyperammonemia. 3. Metabolic acidosis. 4. Peripheral edema with anasarca. 5. 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 6. Coagulopathy. 7. Thrombocytopenia. 8. Controlled hypertension. PLAN 1. Continue Xifaxan and lactulose. The patient refused lactulose on most occasions. 2. Unable to get paracentesis due to insufficient fluid. 3. Encourage lactulose. 4. Start hydralazine. 5. Continue supportive care. 6. Hospice evaluation versus skilled facility. Job#: [id number] [place]
[2017-08-12] MEDS: INSULIN REGULAR, HUMAN 100 UNIT/1 ML 3ML VIAL SQ SCH ×4 (07:30→21:00)
[2017-08-12 07:36] LABS: ANION GAP 11.2 mmol/L (8-16); CALCIUM 8.6 mg/dL (8.4-10.2); CREATININE, SERUM 1.04 mg/dL (0.57-1.11); PHOSPHORUS 1.6 MG/DL (2.3-4.7); POTASSIUM 3.2 mmol/L (3.5-5.1)
--- NOTE | 2017-08-12 07:39 | Progress Note ---
DATE: August 12, 2017 TIME: 7 a.m. OVERNIGHT: No change. REVIEW OF SYSTEMS: Unobtainable. PHYSICAL EXAMINATION VITAL SIGNS: Reviewed. GENERAL: A tired-appearing woman resting in bed. HEENT: Atraumatic. CARDIOVASCULAR: Normal S1 and S2. LUNGS: Moderate breath sounds. ABDOMEN: Soft. Large abdomen. She has a midline scar. She has an incisional hernia that is nontender. EXTREMITIES: Trace to 1+ edema. SKIN: Dry. PSYCHIATRIC: Flat affect. NEUROLOGY: Awake and confused. LABS: Reviewed. MEDICATIONS: Reviewed. ASSESSMENT: A 77-year-old woman with: 1. Fall. 2. Hepatic encephalopathy with hyperammonemia. 3. Metabolic acidosis. 4. Peripheral edema and anasarca. 5. 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 6. Coagulopathy. 7. Thrombocytopenia. 8. Medication noncompliance. 9. Hypertension. PLAN 1. Continue Xifaxan and lactulose as the patient will take. 2. Continue to control blood pressure. 3. Continue supportive care. 4. Titrate hydralazine up to 25 mg q.8 h. 5. Check basic metabolic panel. 6. Discontinue IV fluids and continue with Lasix 20 mg IV daily. May need to bump up to twice a day tomorrow. 7. Discharge planning to skilled facility versus Hospice. Job#: [id number] [place]
[2017-08-12 07:45] LABS: MAGNESIUM 1.2 MG/DL (1.3-2.1)
[2017-08-12] MEDS: URSODIOL 300 MG CAP PO SCH ×2 (09:35→18:03)
[2017-08-12] MEDS: SITAGLIPTIN 100 MG TAB PO SCH (09:35)
[2017-08-12] MEDS: METFORMIN HCL 500 MG TAB CR PO SCH ×2 (09:35→18:03)
[2017-08-12] MEDS: RIFAXIMIN 550 MG TABLET PO SCH ×2 (09:35→21:00)
[2017-08-12] MEDS: PANTOPRAZOLE SOD 40 MG TABEC PO SCH (09:35)
[2017-08-12] MEDS: FUROSEMIDE INJ 10 MG/ML 2 ML VIAL IV SCH (09:35)
[2017-08-12] MEDS: ATENOLOL 50 MG TAB PO SCH ×2 (09:36→18:04)
[2017-08-12] MEDS ORDERED: HYDRALAZINE HCL 10 MG TAB PO SCH (14:00)
[2017-08-12] MEDS: HYDRALAZINE HCL 25 MG TAB PO SCH ×2 (18:03→21:00)
[2017-08-12] MEDS ORDERED: ACETAMINOPHEN 325 MG TAB PO PRN (20:30)
[2017-08-13] VITALS (8 sets, daily range): BP systolic 119–147; BP diastolic 56–67
[2017-08-13] MEDS: PROMETHAZINE 12.5MG/ NACL 0.9% 12.5 MG/50 ML BAG IV PRN (01:09)
[2017-08-13] MEDS: LACTULOSE SYRUP 20 GM/30 ML UDC PO SCH ×4 (01:09→18:00)
[2017-08-13] MEDS ORDERED: OCTREOTIDE ACETATE 500 MCG in SODIUM CHLORIDE 0.9% 250ML 250 ML IV STA (02:46)
[2017-08-13] MEDS ORDERED: PANTOPRAZOLE INJ 40 MG in SODIUM CHLORIDE 0.9% 50ML 50 ML IV STA (02:46)
[2017-08-13 02:52] LABS: HEMATOCRIT 33.6 % (34.2-44.1); HEMOGLOBIN 11.2 g/dL (12.0-16.0)
[2017-08-13] MEDS ORDERED: SODIUM CHLORIDE 0.9% 50ML 50 ML ONE (04:15)
[2017-08-13] MEDS: HYDRALAZINE HCL 25 MG TAB PO SCH ×3 (06:00→22:00)
[2017-08-13] MEDS: LEVOTHYROXINE SODIUM 25 MCG TABLET PO SCH (06:38)
[2017-08-13] MEDS ORDERED: PHYTONADIONE 1 MG/0.5 ML AMP IM ONE (07:30)
[2017-08-13] MEDS ORDERED: PHYTONADIONE 10 MG/ML AMP IM ONE (07:30)
[2017-08-13] MEDS: INSULIN REGULAR, HUMAN 100 UNIT/1 ML 3ML VIAL SQ SCH ×4 (07:30→21:00)
[2017-08-13] MEDS ORDERED: PHYTONADIONE 5 MG TAB PO ONE (07:30)
[2017-08-13 07:50] LABS: BASOPHILS % 0.3 % (0.0-1.0); EOSINOPHILS % 0.3 % (0.0-6.0); HEMATOCRIT 29.1 % (34.2-44.1); HEMOGLOBIN 9.5 g/dL (12.0-16.0); LYMPHOCYTES # (AUTO) 0.5 (1.0-3.2); LYMPHOCYTES % 6.6 % (18.0-39.1); MEAN CORPUSCULAR HGB CONC 32.6 g/dL (31-35); MONOCYTES # (AUTO) 0.8 (0.2-0.8); MONOCYTES % 9.9 % (4.4-11.3); NEUTROPHILS # (AUTO) 6.5 (2.1-6.9); NEUTROPHILS % 81.9 % (38.7-80.0); PLATELET COUNT 101 x10e3/uL (140-360); RED BLOOD COUNT 2.97 x10e6/uL (3.6-5.1); RED CELL DISTRIBUTION WIDTH 19.9 % (11.7-14.4)
[2017-08-13 08:02] LABS: INR 2.12; PROTHROMBIN TIME 22.3 seconds (11.9-14.5)
[2017-08-13 08:07] LABS: ANION GAP 13.7 mmol/L (8-16); CREATININE, SERUM 1.15 mg/dL (0.57-1.11); POTASSIUM 3.7 mmol/L (3.5-5.1)
[2017-08-13] MEDS: URSODIOL 300 MG CAP PO SCH ×2 (08:38→17:27)
[2017-08-13] MEDS: METFORMIN HCL 500 MG TAB CR PO SCH ×2 (08:38→17:27)
[2017-08-13] MEDS: FUROSEMIDE INJ 10 MG/ML 2 ML VIAL IV SCH (08:38)
[2017-08-13] MEDS: ATENOLOL 50 MG TAB PO SCH ×2 (08:39→17:27)
[2017-08-13] MEDS: RIFAXIMIN 550 MG TABLET PO SCH (08:39)
[2017-08-13] MEDS: SITAGLIPTIN 100 MG TAB PO SCH (08:39)
--- NOTE | 2017-08-13 08:58 | Progress Note ---
DATE: August 13, 2017 TIME: 7:40 a.m. OVERNIGHT: Patient vomited blood overnight, nausea. H and H were checked and were stable. Started on Protonix and octreotide drip. REVIEW OF SYSTEMS: Denies any chest pain. PHYSICAL EXAMINATION: VITAL SIGNS: Reviewed. GENERAL APPEARANCE: Tired-appearing woman resting in bed. HEENT: Atraumatic. CARDIOVASCULAR: Normal S1 and S2. LUNGS: Moderate breath sounds. ABDOMEN: Large abdomen, nontender. She has midline scar. She has right-sided incisional hernia, not tender. EXTREMITIES: She has 1+ leg edema bilaterally. SKIN: Dry. PSYCHIATRIC: Flat affect. NEUROLOGICAL: Awake. Moves all extremities. LABS: Reviewed. MEDICATIONS: Reviewed. ASSESSMENT: A 77-year-old woman: 1. Fall. 2. Hepatic encephalopathy with hyperammonemia. 3. Medication noncompliance, refusing lactulose. 4. Metabolic acidosis. 5. Peripheral edema and anasarca. 6. 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 7. Coagulopathy. 8. Thrombocytopenia. 9. Hypertension. 10. Hematemesis. PLAN: 1. H and H stable. 2. Continue PPI and octreotide drip. 3. Follow up GI recommendation. 4. Continue to encourage lactulose, although patient has refused on many occasions. 5. Continue Xifaxan. 6. Unclear as to whether patient has been transitioned to skilled facility or hospice at this time. Decision is still being made. 7. Obtain labs this morning. 8. Give vitamin K 5 mg IM now. 9. Follow up INR. 10. Obtain CT scan of abdomen, patient iodine contrast. Job#: [id number]
[2017-08-13] MEDS: PANTOPRAZOL 40MG/SOD CHL 0.9% 50 ML IV SCH ×3 (13:19→22:07)
[2017-08-13] MEDS: ONDANSETRON HCL INJ 2 MG/ML VIAL IV PRN (14:38)
--- NOTE | 2017-08-13 15:52 | Consultation ---
DATE OF CONSULTATION: August 13, 2017 ATTENDING PHYSICIAN: Dr. Mckinley Santos. REASON FOR CONSULTATION: Hematemesis. CHIEF COMPLAINT: Fall. HISTORY OF PRESENT ILLNESS: Patient is a 77-year-old woman with a history of cirrhosis, hepatic encephalopathy, grade 3 varices and recurrent ascites who had a fall at home. There were not many details provided of the fall. Patient is currently confused and in pain. GI was consulted because patient had a hematemesis last night after taking her aspirin per nursing. She also has abdominal distention. Per nursing she was supposed to be getting a CT soon to check for ascites. She might need a paracentesis soon. Patient is also noncompliant with her lactulose and has not had any recent bowel movements. Her ammonia is currently elevated and she has been refusing her lactulose. She has had EGD in 2015 per records. EGD of banding was done and grade 3 varices were found. PAST MEDICAL HISTORY: Hepatic encephalopathy, liver cirrhosis, hypertension, abdominal surgeries, hypertensive urgency, diabetes mellitus, CKD stage 3, history of esophageal varices. PAST SURGICAL HISTORY: C3-C4 vertebral fusion. ALLERGIES: Please see EMR. FAMILY HISTORY/SOCIAL HISTORY: lives with patient. Family history of hypertension. No reports of alcohol or illicit drugs. MEDICATIONS: Patient takes Xifaxan, lactulose and patient has been put on octreotide drip. REVIEW OF SYSTEMS: Not obtainable due to altered mental status. PHYSICAL EXAMINATION: VITAL SIGNS: Temperature 96.5, pulse 63, respiratory rate 17, BP 147/67, pulse ox 98. GENERAL: Confused, in pain. HEENT: Left eyebrow bruise. CARDIOVASCULAR: Normal S1, S2. Regular rate and rhythm. LUNGS: Reduced breath sounds. ABDOMEN: Distended. Midline scar with a right-sided incisional hernia, somewhat reducible and currently tender. EXTREMITIES: 1+ leg edema bilaterally. SKIN: Icteric. PSYCHIATRY: Confused, disoriented, alert. NEUROLOGIC: Awake. LABS: Ammonia levels are elevated at 166. Sodium level 138. Glucose level 112. AST 54, ALT 11. Total bilirubin 2.4. MEDICATIONS: Reviewed. ASSESSMENT AND PLAN: 1. Hematemesis, one episode. 2. Anemia, drop of hemoglobin from 11.5 to 9.5. 3. Hepatic encephalopathy. 4. Cirrhosis with recurrent ascites. 5. History of esophageal varices with banding. 6. Thrombocytopenia secondary to liver disease. 7. Anasarca and peripheral edema with ascites. 8. Chronic kidney disease. PLAN: 1. The patient is to continue taking lactulose. Discussed with nursing. 2. EGD is warranted but they will monitor patient at this time. Patient is currently on octreotide drip. 3. Continue Xifaxan. 4. Pending abdominal CT to check for ascites. Will need paracentesis. 5. Monitor closely. Monitor ammonia levels. Monitor INR. Thank you for consulting us. We will follow. DICTATED BY: Vivienne Olguin PA-C Job#: [id number] DG MTDD
[2017-08-13] MEDS: OCTREOTIDE ACETATE 500 MCG in SODIUM CHLORIDE 0.9% 250ML 250 ML IV SCH (16:30)
[2017-08-13 18:30] LABS: HEMATOCRIT 31.3 % (34.2-44.1); HEMOGLOBIN 10.2 g/dL (12.0-16.0)
--- NOTE | 2017-08-13 19:00 | Diagnostic Imaging Report ---
PROCEDURE: CT ABDOMEN AND PELVIS WITHOUT CONTRAST TECHNIQUE: The abdomen and pelvis were scanned utilizing a multidetector helical scanner from the diaphragm to the lesser trochanter. Patient unable to tolerate oral contrast. No IV contrast was administered per physician's request. Coronal and sagittal multiplanar reformations were obtained. COMPARISON: Patients [facility], CT, CT ABDOMEN/PELVIS , 03/08/2015, 10:56. INDICATIONS: ABDOMINAL PAIN FINDINGS: ABSENCE OF INTRAVENOUS CONTRAST DECREASES SENSITIVITY FOR DETECTION OF FOCAL LESIONS AND VASCULAR PATHOLOGY. LOWER THORAX: Small bilateral pleural effusions, right greater than left, with associated compressive atelectasis of the lower lobes. HEPATOBILIARY: Shrunken, nodular cirrhotic liver. No focal lesions in this unenhanced exam. No biliary ductal dilation. Cholecystectomy clips. SPLEEN: Borderline to mild splenomegaly, measuring 12.7 cm in AP diameter. Stable 0.9 and 1.5 cm hypodense lesions in the spleen with internal attenuation of approximately 20 HU, which may represent small cysts or lymphangiomas.. PANCREAS: Not ductal dilation. Stable ill-defined, approximately 2.5 x 1.8 cm structure in the region of the uncinate process (series 2 image 37), with measured fluid density. No new lesions. ADRENALS: No adrenal nodules. KIDNEYS/URETERS: No hydronephrosis or stones. Both kidneys are low normal in size. No contour abnormalities. PELVIC ORGANS/BLADDER: Bladder is decompressed and there is a Ferguson catheter in place. Uterus unremarkable. No adnexal masses. PERITONEUM / RETROPERITONEUM: Large amount of intra-abdominal and pelvic ascites. No free air. LYMPH NODES: No retroperitoneal, pelvic, or inguinal adenopathy. Difficult to evaluate for intra-abdominal adenopathy given the ascites. VESSELS: Atherosclerotic calcification of the abdominal aorta and iliac vessels. GI TRACT: Moderate hiatal hernia. Moderate distention of the stomach. Multiple loops of air and fluid-filled proximal small bowel show borderline to mild dilation, with maximal measurement of 3.2 cm, located in the anterior abdomen (for example series 2, images 38, 48). Loops of distal small bowel appeared normal in caliber, however, a definite transition point is not identified. The large bowel is normal in caliber. Distal descending and sigmoid diverticulosis, without diverticulitis. BONES AND SOFT TISSUES: No aggressive lytic lesion. Anterior abdominal hernia repair mesh is again noted (series 2, image 49). A right ventral paramedian hernia is again noted (series 2, image 65, which contains a small segment of small bowel, which has unremarkable appearance (series 2 image 63). 9.2 x 3.4 x 10.3 cm and 6.5 x 4.3 x 6.8 cm well-circumscribed fluid collections in the subcutaneous tissues of the anterior median abdominopelvic wall (series 2, images 62 and 77 and sagittal images 49 and 57, respectively) likely represent fluid-filled hernia as. Diastases of the recti muscles. Generalized anasarca. IMPRESSION: 1. Multiple loops of air and fluid filled proximal small bowel show borderline to mild dilation with a maximal measurement of 3.2 cm. Loops of distal small bowel appear normal in caliber. A definite transition point is difficult to determine given the degree of ascites. This may represent early/mild small bowel obstruction, in the appropriate clinical setting. 2. Shrunken, cirrhotic liver. No focal lesions, within the limitations of this unenhanced exam. 3. Large intra-abdominal and pelvic ascites and mild splenomegaly, secondary to portal hypertension. 4. Stable 2.5 cm hypodense structure in the uncinate process, which may represent an IPMN. 5. Well-circumscribed, fluid collections in the subcutaneous tissues of the anterior median abdominopelvic wall likely represent fluid-filled abdominal hernias. There is generalized anasarca. 6. Small bilateral pleural effusions, right greater left, with associated left lower lobe atelectasis. Akhil Sheffield M.D. Dictated by: Akhil Sheffield M.D. on 08/13/2017 at 17:52 Electronically approved by: Akhil Sheffield M.D. on 08/13/2017 at 19:00
[2017-08-13] MEDS ORDERED: HALOPERIDOL LACTATE 5 MG/ML VIAL IM ONE (22:30)
[2017-08-14] VITALS (8 sets, daily range): BP systolic 90–119; BP diastolic 35–54
--- NOTE | 2017-08-14 | Diagnostic Imaging Report ---
EXAM: ABDOMEN-1VIEW (KUB) DATE: 08/13/2017 10:47 PM Time stamp on exam: 2321 hours INDICATION: NG tube placement COMPARISON: None FINDINGS: LINES/TUBES: There is an NG tube visualized with tip overlying the gastric antrum. BOWEL PATTERN: Few small bowel loops appear distended in the left hemiabdomen measuring up to 3.5 cm in diameter suggestive of ileus SOFT TISSUES: No abnormal calcifications. No mass effect. LUNG BASES: The lung bases demonstrate atelectasis and small pleural effusions. BONES: No acute findings. IMPRESSION: 1. NG tube in good position with tip overlying the antrum. 2. Distention of the small bowel. Signed by: Dr. Yogesh Wills M.D. on 08/13/2017 11:57 PM
[2017-08-14] MEDS: PROMETHAZINE 12.5MG/ NACL 0.9% 12.5 MG/50 ML BAG IV PRN (00:45)
[2017-08-14] MEDS: RIFAXIMIN 550 MG TABLET PO SCH ×3 (00:46→21:00)
[2017-08-14] MEDS: SODIUM CHLORIDE 0.9% 250ML IRRIG IR SCH ×6 (00:46→22:52)
[2017-08-14] MEDS: LACTULOSE SYRUP 20 GM/30 ML UDC RC PRN ×2 (00:47→22:49)
[2017-08-14] MEDS: OCTREOTIDE ACETATE 500 MCG in SODIUM CHLORIDE 0.9% 250ML 250 ML IV SCH ×2 (01:14→08:54)
[2017-08-14] MEDS: HYDROMORPHONE 1MG/1ML INJ IV PRN ×3 (01:45→20:02)
[2017-08-14] MEDS: PANTOPRAZOL 40MG/SOD CHL 0.9% 50 ML IV SCH ×5 (03:00→22:53)
[2017-08-14] MEDS: LEVOTHYROXINE SODIUM 25 MCG TABLET PO SCH (06:00)
[2017-08-14] MEDS: INSULIN REGULAR, HUMAN 100 UNIT/1 ML 3ML VIAL SQ SCH ×4 (07:30→21:00)
[2017-08-14] MEDS: FUROSEMIDE INJ 10 MG/ML 2 ML VIAL IV SCH (08:46)
[2017-08-14] MEDS: SITAGLIPTIN 100 MG TAB PO SCH (08:47)
[2017-08-14] MEDS: URSODIOL 300 MG CAP PO SCH ×2 (08:47→16:46)
[2017-08-14] MEDS: ATENOLOL 50 MG TAB PO SCH ×2 (08:47→16:47)
[2017-08-14] MEDS: PHYTONADIONE 10 MG/ML AMP SC SCH (08:47)
[2017-08-14] MEDS ORDERED: PHYTONADIONE 1 MG/0.5 ML AMP IM SCH (09:00)
[2017-08-14] MEDS ORDERED: LACTULOSE SYRUP 20 GM/30 ML UDC RC ONE ×2 (09:00→10:00)
[2017-08-14 09:24] LABS: BASOPHILS % 0.1 % (0.0-1.0); EOSINOPHILS % 0.3 % (0.0-6.0); HEMATOCRIT 26.5 % (34.2-44.1); HEMOGLOBIN 8.6 g/dL (12.0-16.0); LYMPHOCYTES # (AUTO) 0.7 (1.0-3.2); LYMPHOCYTES % 9.7 % (18.0-39.1); MEAN CORPUSCULAR HGB CONC 32.5 g/dL (31-35); MEAN CORPUSCULAR VOLUME 101.5 fL (81-99); MONOCYTES # (AUTO) 0.8 (0.2-0.8); MONOCYTES % 11.3 % (4.4-11.3); NEUTROPHILS # (AUTO) 5.6 (2.1-6.9); NEUTROPHILS % 77.8 % (38.7-80.0); PLATELET COUNT 88 x10e3/uL (140-360); RED BLOOD COUNT 2.61 x10e6/uL (3.6-5.1); RED CELL DISTRIBUTION WIDTH 20.2 % (11.7-14.4)
[2017-08-14 09:52] LABS: ANION GAP 21.2 mmol/L (8-16); CALCIUM 9.1 mg/dL (8.4-10.2); CREATININE, SERUM 1.48 mg/dL (0.57-1.11); POTASSIUM 4.2 mmol/L (3.5-5.1)
--- NOTE | 2017-08-14 10:34 | Progress Note ---
DATE: August 14, 2017 OVERNIGHT: Patient had additional hematemesis. NG tube was placed with 700 mL of blood removed. Patient remains on NG tube. Has refused lactulose on multiple occasions. REVIEW OF SYSTEMS: Unobtainable. PHYSICAL EXAMINATION: VITAL SIGNS: Reviewed. GENERAL APPEARANCE: Tired-appearing woman resting in bed. HEENT: Atraumatic. NG tube in place. CARDIOVASCULAR: Normal S1 and S2. LUNGS: Moderate breath sounds. ABDOMEN: Large abdomen, midline scar. She has right-sided incisional hernia. Minimally tender abdomen. EXTREMITIES: 1+ leg edema bilaterally. SKIN: Dry. PSYCHIATRIC: Flat affect. NEUROLOGICAL: Awake, but confused. LABS: Reviewed. MEDICATIONS: Reviewed. ASSESSMENT: A 77-year-old woman: 1. Fall. 2. Hepatic encephalopathy with hyperammonemia. 3. Medication noncompliance, refusing lactulose. 4. Metabolic acidosis. 5. Peripheral edema and anasarca. 6. 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 7. Coagulopathy. 8. Thrombocytopenia. 9. Hypertension. 10. Hematemesis. 11. Early small-bowel obstruction. 12. Large intra-abdominal and pelvic ascites. 13. Diverticulosis. 14. Small bilateral pleural effusions. 15. Coagulopathy. 16. Diabetes mellitus type 2 with hemoglobin A1c of 5.1, LDL of 63. PLAN: 1. Continue NG tube. 2. Will need EGD. 3. Likely has variceal with some bleeding related to varices. 4. Continue to monitor H and H and transfuse as needed. 5. Continue PPI and octreotide. 6. Continue to encourage lactulose although patient refuses on many occasions. 7. Continue to monitor renal function. 8. Give 5 mg of vitamin K on a daily basis for coagulopathy. INR yesterday was 2.12. 9. Continue sliding scale insulin. 10. Follow up H and H this morning. 11. Follow up GI recommendations and await endoscopy. 12. I will also attempt to contact family this morning. 13. Prognosis is poor. Job#: [id number]
[2017-08-14] MEDS: HYDRALAZINE HCL 25 MG TAB PO SCH ×2 (14:00→22:00)
--- NOTE | 2017-08-14 16:36 | Diagnostic Imaging Report ---
Date and Time: 08/14/2017 Procedure: Central venous catheter placement hand method lasting machine operator: Dr. Griffith Pre-operative diagnosis: Poor intravenous access Post-operative diagnosis: Poor intravenous access Conscious Sedation: None Additional Medications: Lidocaine 1% for local anesthesia Estimated blood loss: 10 cc Specimens: None Implants: 7 Angolan 16 cm triple-lumen central venous catheter DISCUSSION: Informed consent was obtained from the next of kin and documented in the medical record. The patient was placed in the supine position on the fluoroscopic table. The right cervical region was evaluated with sonography. The right internal jugular vein was confirmed to be patent, evidenced by compressibility. The right neck was prepped and draped in standard sterile fashion. 1% lidocaine was infiltrated into the skin and subcutaneous tissues for local anesthesia. Then under continuous sonographic guidance, an 18-gauge singlewall needle was used to access the right internal jugular vein. A permanent sonographic image was stored in the medical record. A 0.0 3 5-in. wire was advanced centrally under fluoroscopic guidance. The needle was removed and the tract was dilated. Then, a 7 [place]olan, 16 cm triple-lumen central venous catheter was advanced over the wire to a depth of 15 cm. The wire was removed and the catheter tip was positioned in the high right atrium. Each lumen showed adequate bidirectional flow and was flushed with sterile saline. The catheter was secured to the skin with monofilament nylon suture and a sterile dressing was applied. The patient tolerated the procedure without immediate complication. FINDINGS: Patent right internal jugular vein IMPRESSION: Successful placement of a 7 [place]olan, 16 cm triple-lumen central venous catheter by a right internal jugular approach under sonographic and fluoroscopic guidance. Signed by: Dr. Keyon Griffith M.D. on 08/14/2017 4:32 PM
--- NOTE | 2017-08-14 16:36 | Diagnostic Imaging Report ---
Date and Time: 08/14/2017 Procedure: Central venous catheter placement cable ferry operator: Dr. Griffith Pre-operative diagnosis: Poor intravenous access Post-operative diagnosis: Poor intravenous access Conscious Sedation: None Additional Medications: Lidocaine 1% for local anesthesia Estimated blood loss: 10 cc Specimens: None Implants: 7 [place] 16 cm triple-lumen central venous catheter DISCUSSION: Informed consent was obtained from the next of kin and documented in the medical record. The patient was placed in the supine position on the fluoroscopic table. The right cervical region was evaluated with sonography. The right internal jugular vein was confirmed to be patent, evidenced by compressibility. The right neck was prepped and draped in standard sterile fashion. 1% lidocaine was infiltrated into the skin and subcutaneous tissues for local anesthesia. Then under continuous sonographic guidance, an 18-gauge singlewall needle was used to access the right internal jugular vein. A permanent sonographic image was stored in the medical record. A 0.0 3 5-in. wire was advanced centrally under fluoroscopic guidance. The needle was removed and the tract was dilated. Then, a 7 [place], 16 cm triple-lumen central venous catheter was advanced over the wire to a depth of 15 cm. The wire was removed and the catheter tip was positioned in the high right atrium. Each lumen showed adequate bidirectional flow and was flushed with sterile saline. The catheter was secured to the skin with monofilament nylon suture and a sterile dressing was applied. The patient tolerated the procedure without immediate complication. FINDINGS: Patent right internal jugular vein IMPRESSION: Successful placement of a 7 [place], 16 cm triple-lumen central venous catheter by a right internal jugular approach under sonographic and fluoroscopic guidance. Signed by: Dr. Keyon Griffith M.D. on 08/14/2017 4:32 PM
--- NOTE | 2017-08-14 23:46 | Progress Note ---
DATE: August 14, 2017 GI PROGRESS REPORT SUBJECTIVE: Patient is current incoherent, obtunded, NG in place which was initially draining dark blood, subsequently got cleared with bile. Patient continues to remain hypotensive. No bowel movement. REVIEW OF SYSTEMS: Unobtainable. INPATIENT MEDICATIONS: Reviewed, as per JUL. PHYSICAL EXAMINATION: VITAL SIGNS: Temperature 95.6, pulse 67, respiration 19, blood pressure 103/42 to 90/38, oxygen saturation 97% on room air. GENERAL: Obtunded, NG in place draining bile. HEENT: Oral mucosa is moist. Slightly bilateral icteric sclerae. CVS: S1 and S2 regular. LUNGS: Bilaterally grossly clear, although patient has very poor inspiratory effort. ABDOMEN: Ascites with large unreducible umbilical hernia, nontender. Bowel sounds present. EXTREMITIES: Warm. 1+ bilateral pitting leg edema. LABS: Sodium 137, potassium 4.2, chloride 107, bicarb 13, BUN 34, creatinine 1.48 which is up from 1.15. Ammonia level is high to 160, down from 166. IMPRESSION: 1. Decompensated nonalcoholic steatohepatitis liver cirrhosis with hepatic encephalopathy, likely upper gastrointestinal bleeding which has ceased. Patient remains hypotensive, medically unstable, therefore upper endoscopy was not performed. She is most likely having upper gastrointestinal bleeding, either oozing from portal hypertensive gastropathy or probable variceal bleed which has ceased. 2. Patient has very high MELD score with rising INR. Plan :Had detailed discussion with the patient's as well as the family. Overall, patient's prognosis is poor. Even if she survived this event, then she is most likely not a candidate for liver transplant given her advanced age. Discussed with the patient about comfort care/hospice. Patient as well as other family member agreed. She was put on hospice care in the morning. Hospice team has seen and evaluated the patient. Patient has been started on morphine. Ever since then, she is very calm. Since NG is draining bile now, therefore I recommend to push lactulose through the NG and watch her bowel movement. Continue comfort care as per hospice. Job#: [id number] DR BRADLEY
[2017-08-15] VITALS (10 sets, daily range): BP systolic 91–118; BP diastolic 34–54
[2017-08-15] MEDS: SODIUM CHLORIDE 0.9% 250ML IRRIG IR SCH ×7 (01:11→23:41)
[2017-08-15] MEDS: PANTOPRAZOL 40MG/SOD CHL 0.9% 50 ML IV SCH ×3 (03:51→14:00)
[2017-08-15] MEDS: HYDROMORPHONE 1MG/1ML INJ IV PRN ×3 (05:45→18:43)
[2017-08-15] MEDS: LEVOTHYROXINE SODIUM 25 MCG TABLET PO SCH (06:00)
[2017-08-15] MEDS: HYDRALAZINE HCL 25 MG TAB PO SCH ×3 (06:00→22:00)
[2017-08-15] MEDS: INSULIN REGULAR, HUMAN 100 UNIT/1 ML 3ML VIAL SQ SCH ×4 (07:30→21:00)
[2017-08-15] MEDS: OCTREOTIDE ACETATE 500 MCG in SODIUM CHLORIDE 0.9% 250ML 250 ML IV SCH ×2 (07:36→08:12)
[2017-08-15 07:56] LABS: EOSINOPHILS # (AUTO) 0.1 (0.0-0.4); EOSINOPHILS % 1.3 % (0.0-6.0); LYMPHOCYTES # (AUTO) 0.5 (1.0-3.2); LYMPHOCYTES % 7.7 % (18.0-39.1); MEAN CORPUSCULAR HEMOGLOBIN 32.4 pg (28-32); MEAN CORPUSCULAR HGB CONC 32.3 g/dL (31-35); MEAN CORPUSCULAR VOLUME 100.4 fL (81-99); MONOCYTES # (AUTO) 0.8 (0.2-0.8); MONOCYTES % 12.5 % (4.4-11.3); NEUTROPHILS % 78.2 % (38.7-80.0); PLATELET COUNT 84 x10e3/uL (140-360); RED BLOOD COUNT 2.25 x10e6/uL (3.6-5.1); RED CELL DISTRIBUTION WIDTH 20.8 % (11.7-14.4)
[2017-08-15 08:02] LABS: HEMOGLOBIN 7.3 g/dL (12.0-16.0)
[2017-08-15 08:03] LABS: HEMATOCRIT 22.6 % (34.2-44.1)
[2017-08-15 08:48] LABS: CALCIUM 8.8 mg/dL (8.4-10.2); CREATININE, SERUM 1.93 mg/dL (0.57-1.11)
[2017-08-15] MEDS: ATENOLOL 50 MG TAB PO SCH ×2 (08:51→16:23)
[2017-08-15] MEDS: RIFAXIMIN 550 MG TABLET PO SCH (09:00)
[2017-08-15] MEDS: URSODIOL 300 MG CAP PO SCH ×2 (09:00→16:23)
[2017-08-15] MEDS: SITAGLIPTIN 100 MG TAB PO SCH (09:00)
[2017-08-15] MEDS: PHYTONADIONE 10 MG/ML AMP SC SCH (10:29)
[2017-08-15] MEDS: FUROSEMIDE INJ 10 MG/ML 2 ML VIAL IV SCH (10:29)
[2017-08-15 11:33] LABS: BAND NEUTROPHILS % (MANUAL) 15 %; EOSINOPHILS % (MANUAL) 2 % (0-7); LYMPHOCYTES % (MANUAL) 20 % (19-48); MONOCYTES % (MANUAL) 5 % (3.4-9.0); NEUTROPHILS % (MANUAL) 58 % (40-74); PLATELET ESTIMATE SLIGHTLY DECREASED; PLATELET MORPHOLOGY COMMENT NORMAL; RBC MORPHOLOGY COMMENT NORMAL
--- NOTE | 2017-08-15 13:55 | Progress Note ---
DATE: August 15, 2017 TIME: 1315 MEDICINE PROGRESS NOTE OVERNIGHT: Patient continues to be obtunded and referred for hospice care. NG tube draining clear edmund fluid. Patient without meaningful pupillary response. DICTATION STOPPED AT THIS POINT. Dictated by Mike Salas NP. Job#: [id number]
--- NOTE | 2017-08-15 14:17 | Progress Note ---
DATE: August 15, 2017, at 1315. MEDICINE PROGRESS NOTE SUBJECTIVE: Overnight, patient continues to be obtunded. NG tube draining clear fluid noted this day. REVIEW OF SYSTEMS: Unobtainable. OBJECTIVE VITAL SIGNS: T is 97.1 tympanic, pulse is 61 and regular, respiratory rate 6 to 10, BP 105/41, pulse ox 93% with nasal cannula at 2 liters. GENERAL: This is a very ill-appearing, pale, elderly woman lying supine in bed. Obtunded. HEENT: Oral mucosa dry. Icteric sclerae bilaterally. NG tube in place draining clear fluid. Pupils 2 mm and generally fixed with slowed response to light. CARDIOVASCULAR: S1 and S2 distant. RESPIRATORY: Bilateral breath sounds clear to auscultation with diminished rate and poor excursion. ABDOMEN: Significant ascites noted with right-side umbilical hernia nontender to touch. Bowel sounds positive in all 4 quadrants. EXTREMITIES: Warm, 2+ bilateral pitting leg edema at pretibial area. LABS: WBC is 6.4, H\T\H 7.3 and 22.6, platelets 84. Chemistries with a sodium of 140, potassium 4, chloride 110, carbon dioxide 19, BUN 45 and creatinine 1.93, glucose ranging from 130 to 60, with this a.m.'s ammonia noted to be 185. MEDICATIONS: Patient is currently on vitamin K 5 mg subcutaneous daily, Lasix 20 mg IV daily, Protonix q.5 h. IV drip, p.r.n. Dilaudid, p.r.n. dextrose, q.i.d. lactulose p.r.n. constipation, p.r.n. Zofran, p.r.n. Tylenol, octreotide drip, hydralazine 25 mg p.o. q.8, atenolol 50 mg p.o. b.i.d., sliding-scale insulin, p.o. Actigall, p.o. Januvia, p.o. rifaximin, p.o. Synthroid, p.r.n. IV metoprolol. Currently patient is unable to tolerate p.o. meds and being held by nursing staff. ASSESSMENT: This is a 77-year-old woman with 1. Fall. 2. Hepatic encephalopathy with hyperammonemia. 3. Medication noncompliance: Lactulose. 4. Metabolic acidosis. 5. Peripheral edema and anasarca. 6. Chronic kidney disease stage 2 to 3. 7. Coagulopathy. 8. Thrombocytopenia. 9. Hypertension. 10. Hematemesis. 11. Early small-bowel obstruction. 12. Large intra-abdominal and pelvic ascites. 13. Diverticulosis. 14. Small bilateral pleural effusions. 15. Diabetes mellitus type 2 with an A1c of 5.1, LDL of 63 on admission. PLAN 1. Continue NG tube and follow up GI recs. 2. Hold EGD. 3. Possible esophageal varices with counts indicating an active bleed. 4. Continue to monitor H\T\H, if hospice admission delayed. 5. Continue PPI and octreotide. 6. Continue to encourage lactulose although patient refuses on many occasions. 7. Monitor renal function. 8. Give 5 mg of K on daily basis as med list above. INR on the 6th was 22.3. 9. Sliding-scale insulin. 10. Follow up GI recommendations. 11. Disposition: Patient currently pending discharge to [facility]. Patient being maintained comfortable on current dose of Dilaudid per nursing staff. Family at bedside agreeable to additional pain medication in spite of declining vital signs. Prognosis is very poor. Family at bedside, all questions answered, no concerns or complaints provided by family. Dictated by: Mike Salas NP Job#: [id number] EV
--- NOTE | 2017-08-15 22:18 | Progress Note ---
DATE: August 15, 2017 GI PROGRESS REPORT SUBJECTIVE: NG tube has been taken out. She is currently on Dilaudid/morphine for pain control. Patient is no longer on acute care. REVIEW OF SYSTEMS: Unobtainable. MEDICATIONS: MAR reviewed. PHYSICAL EXAMINATION: VITAL SIGNS: Temperature 96.5, pulse 60, respiration 10, blood pressure 104/51, oxygen saturation 96% on 2 liters of nasal cannula. GENERAL: Lethargic, drowsy, sleepy. HEENT: Oral mucosa dry. Icteric sclerae. CVS: S1 and S2 regular. LUNGS: Bilaterally grossly clear with poor inspiratory effort. ABDOMEN: Huge, ascites with large umbilical hernia, nontender at this time. No rebound. Bowel sounds present. EXTREMITIES: Warm. 1+ bilateral pitting leg edema. LABS: WBC 6.4, hemoglobin 7.3, hematocrit 22.6, MCV 100.4, platelet count 84,000. Sodium 140, potassium 4.0, chloride 110, bicarb 19, BUN 45, creatinine 1.93. 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 Patient has already been put on hospice care. She is on comfort care, getting Dilaudid. PLAN: Hospice care in place. Therefore, recommend to stop any blood draw, discontinue all routine medication. I had again detailed discussion with the family members. Discontinue octreotide and Protonix infusions. No need to give any lactulose anymore. Nurse taking care of the patient has been told to be in touch with the hospice care. I discussed patient's comfort level while being on dilaudid, with all the family members at bedside. Job#: [id number] DR BRADLEY
[2017-08-16] VITALS (11 sets, daily range): BP systolic 67–123; BP diastolic 34–58
[2017-08-16] MEDS: HYDROMORPHONE 1MG/1ML INJ IV PRN ×2 (00:55→10:30)
[2017-08-16] MEDS: PROMETHAZINE 12.5MG/ NACL 0.9% 12.5 MG/50 ML BAG IV PRN (02:57)
[2017-08-16] MEDS: SODIUM CHLORIDE 0.9% 250ML IRRIG IR SCH ×2 (03:45→07:45)
[2017-08-16] MEDS ORDERED: LORAZEPAM INJ 2 MG/ML VIAL IV PRN (04:45)
[2017-08-16] MEDS: HYDRALAZINE HCL 25 MG TAB PO SCH ×3 (05:42→21:14)
[2017-08-16] MEDS: LEVOTHYROXINE SODIUM 25 MCG TABLET PO SCH (05:43)
[2017-08-16 06:18] LABS: BASOPHILS % 0.1 % (0.0-1.0); EOSINOPHILS # (AUTO) 0.1 (0.0-0.4); EOSINOPHILS % 1.4 % (0.0-6.0); LYMPHOCYTES # (AUTO) 0.6 (1.0-3.2); LYMPHOCYTES % 8.3 % (18.0-39.1); MEAN CORPUSCULAR HEMOGLOBIN 33.3 pg (28-32); MEAN CORPUSCULAR HGB CONC 33.8 g/dL (31-35); MEAN CORPUSCULAR VOLUME 98.6 fL (81-99); MONOCYTES # (AUTO) 0.9 (0.2-0.8); MONOCYTES % 12.4 % (4.4-11.3); NEUTROPHILS # (AUTO) 5.6 (2.1-6.9); NEUTROPHILS % 77.2 % (38.7-80.0); PLATELET COUNT 71 x10e3/uL (140-360)
[2017-08-16 06:35] LABS: CALCIUM 8.3 mg/dL (8.4-10.2); CREATININE, SERUM 2.38 mg/dL (0.57-1.11)
[2017-08-16 07:16] LABS: HEMATOCRIT 20.7 % (34.2-44.1)
[2017-08-16] MEDS: INSULIN REGULAR, HUMAN 100 UNIT/1 ML 3ML VIAL SQ SCH ×4 (07:30→21:00)
--- NOTE | 2017-08-16 08:50 | Progress Note ---
DATE: August 16, 2017 TIME: 8:22 a.m. OVERNIGHT: The patient had agitation. Family transitioned the patient to Hospice care. She is morphine and Ativan, and has improved and has calmed down with these medications. Her son plans to transition the patient home with home Hospice once she is stable. REVIEW OF SYSTEMS: Unobtainable. PHYSICAL EXAMINATION VITAL SIGNS: Reviewed. GENERAL: A tired-appearing woman resting in bed. HEENT: Atraumatic. CARDIOVASCULAR: Normal S1 and S2. LUNGS: She has good chest expansion. ABDOMEN: Soft. Large abdomen. She has an incisional hernia. EXTREMITIES: One to 2+ edema. SKIN: Dry. PSYCHIATRIC: Unable to assess. LABS: Reviewed. MEDICATIONS: Reviewed. ASSESSMENT: A 77-year-old woman with: 1. Hepatic encephalopathy with hyperammonemia. 2. Medication noncompliance. 3. Peripheral edema and anasarca. 4. 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 5. Small-bowel obstruction. 6. Large intra-abdominal and pelvic ascites. 7. Diverticulosis. 8. Small bilateral pleural effusion. 9. Diabetes mellitus, type 2: Hemoglobin A1c 5.1, LDL 63. PLAN 1. The patient is transitioned to Hospice care. 2. Continue morphine and Ativan p.r.n. 3. Transition home if she is stable with Hospice per the . 4. Prognosis is quite poor. Family is at the bedside. I have discussed the case with daughter and son at bedside. I also discussed the case with the by telephone. Code status do not resuscitate. Job#: [id number] IN
[2017-08-16] MEDS: FUROSEMIDE INJ 10 MG/ML 2 ML VIAL IV SCH (09:00)
[2017-08-16] MEDS: URSODIOL 300 MG CAP PO SCH ×2 (09:00→16:32)
[2017-08-16] MEDS: PHYTONADIONE 10 MG/ML AMP SC SCH (09:00)
[2017-08-16] MEDS: SITAGLIPTIN 100 MG TAB PO SCH (09:00)
[2017-08-16] MEDS: ATENOLOL 50 MG TAB PO SCH ×2 (09:00→16:32)
[2017-08-17] VITALS: BP 110/49
[2017-08-17 04:00] VITALS: BP 127/57
[2017-08-17] MEDS: LEVOTHYROXINE SODIUM 25 MCG TABLET PO SCH (05:40)
[2017-08-17] MEDS: HYDRALAZINE HCL 25 MG TAB PO SCH ×2 (05:40→14:00)
[2017-08-17] MEDS ORDERED: FUROSEMIDE40 MG PO (06:36)
--- NOTE | 2017-08-17 07:18 | Discharge Summary ---
PRINCIPAL DIAGNOSES 1. Hepatic encephalopathy with hyperammonemia. 2. Medication noncompliance. 3. Peripheral edema and anasarca. 4. 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 5. Small-bowel obstruction. 6. Large intra-abdominal and pelvic ascites. 7. Diverticulosis. 8. Small bilateral pleural effusion. 9. Diabetes mellitus, type 2. Hemoglobin A1c 5.1, LDL 63. SECONDARY DIAGNOSIS: Diabetes mellitus, type 2. CHIEF COMPLAINT: Confusion. HISTORY OF PRESENT ILLNESS: A 77-year-old woman with confusion. Refer to the H and P for further details. HOSPITAL COURSE: The patient was found to have hepatic encephalopathy with hyperammonemia and medication noncompliance secondary to use of lactulose. She had peripheral edema and anasarca treated with diuretics. She had chronic kidney disease, stage 2/3 and small-bowel obstruction. She had a large intra-abdominal and pelvic ascites. Obtained paracentesis. Diverticulosis and small bilateral pleural effusion present. Diabetes mellitus, type 2 with hemoglobin A1c 5.1, LDL 63. Family transitioned the patient to Hospice care. She was transitioned home with Hospice care. DISCHARGE MEDICATIONS: Per electronic medical record. FOLLOWUP: Hospice care team and primary care doctor in 1 week. WESLEY PATTON MD Job#: [id number] [place]
[2017-08-17] MEDS: INSULIN REGULAR, HUMAN 100 UNIT/1 ML 3ML VIAL SQ SCH ×2 (07:30→11:30)
[2017-08-17 08:00] VITALS: BP 121/59
[2017-08-17] MEDS: URSODIOL 300 MG CAP PO SCH (09:00)
[2017-08-17] MEDS: PHYTONADIONE 10 MG/ML AMP SC SCH (09:00)
[2017-08-17] MEDS: SITAGLIPTIN 100 MG TAB PO SCH (09:00)
[2017-08-17] MEDS: ATENOLOL 50 MG TAB PO SCH (09:00)
[2017-08-17] MEDS: FUROSEMIDE INJ 10 MG/ML 2 ML VIAL IV SCH (09:00)
[2017-08-17 12:00] VITALS: BP 121/58
== END 2017-08-17 15:48 | disposition hospice, home (50) | DRG 441 ==
LOC: ER 05:58 → ERHOLD 09:39 → IMCU 19:46 → OBSVTOIN 08-07 07:25 → MED/SURG3 08-08 10:02 → IMCU 08-14 00:34 → MED/SURG3 08-16 16:54
PROVIDERS: ADMIT Internal Medicine; ATTEND Internal Medicine
PROC: 0JQ13ZZ Repair Face Subcutaneous Tissue and Fascia, Percutaneous Approach (ICD-10-PCS; principal; 2017-08-04)
PROC: 02HV33Z Insertion of Infusion Device into Superior Vena Cava, Percutaneous Approach (ICD-10-PCS; 2017-08-14)
PROC: B548ZZA Ultrasonography of Superior Vena Cava, Guidance (ICD-10-PCS; 2017-08-14)
DX: K72.90 Hepatic failure, unspecified without coma (principal); I85.11 Secondary esophageal varices with bleeding; K92.0 Hematemesis; D68.9 Coagulation defect, unspecified; J90 Pleural effusion, not elsewhere classified; E87.2 Acidosis; E72.20 Disorder of urea cycle metabolism, unspecified; R18.8 Other ascites; K56.609 Unspecified intestinal obstruction, unspecified as to partial versus complete obstruction; N18.3 Chronic kidney disease, stage 3 (moderate); D69.59 Other secondary thrombocytopenia; E11.9 Type 2 diabetes mellitus without complications; K74.60 Unspecified cirrhosis of liver; E03.9 Hypothyroidism, unspecified; Z88.5 Allergy status to narcotic agent; Z88.0 Allergy status to penicillin; Z91.041 Radiographic dye allergy status; S01.81XA Laceration without foreign body of other part of head, initial encounter; W01.0XXA Fall on same level from slipping, tripping and stumbling without subsequent striking against object, initial encounter; Y93.01 Activity, walking, marching and hiking; Y92.012 Bathroom of single-family (private) house as the place of occurrence of the external cause; D64.9 Anemia, unspecified; Z87.19 Personal history of other diseases of the digestive system; S06.0X0A Concussion without loss of consciousness, initial encounter; R19.7 Diarrhea, unspecified; K43.2 Incisional hernia without obstruction or gangrene; R53.81 Other malaise; T47.3X6A Underdosing of saline and osmotic laxatives, initial encounter; Z91.128 Patient's intentional underdosing of medication regimen for other reason; Y92.230 Patient room in hospital as the place of occurrence of the external cause; K57.90 Diverticulosis of intestine, part unspecified, without perforation or abscess without bleeding; K75.81 Nonalcoholic steatohepatitis (NASH); I48.0 Paroxysmal atrial fibrillation
CPT/HCPCS: 36415; 36556; 51700; 70450; 71045; 72125; 74018; 74176; 74470; 76705; 76937; 77001; 80048; 80053; 80061; 81001; 82140; 82550; 82553; 82948; 83036; 83630; 83735; 84100; 84132; 84443; 84484; 85014; 85018; 85025; 85610; 85730; 86850; 86900; 87045; 87177; 87328; 87493; 93005; 93306; 96361; 97139; 99285; C1751; G0378; J1160; J1170; J1630; J1940; J2001; J2060; J2270; J2353; J2405; J2550; J3430; J3480; J7030; J7050; J7799